=== PATIENT | female | born 1980 | race Asian ===

== ENCOUNTER 2018-01-03 12:17 | Inpatient (IN) | payer MEDICAID ==
[2018-01-03 13:53] LABS: ADD UMIC YES; UR ASCORBIC ACID NEGATIVE (NEGATIVE); UR BACTERIA FEW /HPF (NONE SEEN); UR BILIRUBIN (Dip) NEGATIVE (NEGATIVE); UR BLOOD (Dip) 1+ mg/dL (NEGATIVE); UR CLARITY CLEAR (CLEAR); UR COLOR YELLOW (YELLOW); UR GLUCOSE (Dip) NEGATIVE (NEGATIVE); UR KETONES (Dip) NEGATIVE (NEGATIVE); UR LEUKOCYTE ESTERASE (Dip) NEGATIVE Leu/ul (NEGATIVE); UR NITRITE (Dip) NEGATIVE (NEGATIVE); UR RBC 1 /HPF (0-5); UR SPECIFIC GRAVITY (Dip) 1.017 (1.003-1.030); UR SQUAMOUS EPITHELIAL CELL FEW /HPF (FEW); UR TOTAL PROTEIN (Dip) 1+ mg/dl (NEGATIVE); UR UROBILINOGEN (Dip) NEGATIVE (NEGATIVE); UR WBC 3 /HPF (0-5)
[2018-01-03 14:15] LABS: ADD MAN DIFF? NO
[2018-01-03 14:18] LABS: BASOPHILS % 0.4 % (0.0-2.0); EOSINOPHILS # 0.1 10^3/ul (0.0-0.5); EOSINOPHILS % 1.4 % (0.0-7.0); HEMATOCRIT 37.2 % (37.0-47.0); HEMOGLOBIN 12.7 g/dl (12.0-16.0); LYMPHOCYTES # 1.7 10^3/ul (0.8-2.9); LYMPHOCYTES % 17.9 % (15.0-51.0); MEAN CORPUSCULAR HEMOGLOBIN 31.1 pg (29.0-33.0); MEAN CORPUSCULAR HGB CONC 34.1 g/dl (32.0-37.0); MEAN PLATELET VOLUME 10.8 fl (7.4-10.4); MONOCYTE # 0.5 10^3/ul (0.3-0.9); MONOCYTES % 4.8 % (0.0-11.0); NEUTROPHIL # 6.9 10^3/ul (1.6-7.5); NEUTROPHILS % 73.7 % (39.0-77.0); PLATELET COUNT 245 10^3/UL (140-415); RED BLOOD COUNT 4.09 10^6/ul (4.20-5.40); RED CELL DISTRIBUTION WIDTH 12.7 % (11.5-14.5)
[2018-01-03 14:18] LABS: WHITE BLOOD COUNT 9.4 10^3/ul (4.8-10.8)
[2018-01-03 14:42] LABS: INR 0.83; PROTIME 11.5 Sec (11.9-14.9); PT RATIO 0.9
[2018-01-03 14:43] LABS: PARTIAL THROMBOPLASTIN TIME 26.7 Sec (25.0-35.0)
[2018-01-03 14:44] LABS: ALANINE AMINOTRANSFERASE 16 IU/L (13-69); ALBUMIN 3.5 g/dl (3.3-4.9); ALBUMIN/GLOBULIN RATIO 1.12; ALKALINE PHOSPHATASE 135 IU/L (42-121); ANION GAP 15 (8-16); ASPARTATE AMINO TRANSFERASE 17 IU/L (15-46); BILIRUBIN,INDIRECT 0.2 mg/dl (0-1.1); BILIRUBIN,TOTAL 0.2 mg/dl (0.2-1.3); BLOOD UREA NITROGEN 8 mg/dl (7-20); CALCIUM 8.7 mg/dl (8.4-10.2); CARBON DIOXIDE 21 mmol/L (21-31); CHLORIDE 106 mmol/L (97-110); CREATININE 0.53 mg/dl (0.44-1.00); GLUCOSE 83 mg/dl (70-220); POTASSIUM 3.9 mmol/L (3.5-5.1); SODIUM 138 mmol/L (135-144); TOTAL PROTEIN 6.6 g/dl (6.1-8.1)
[2018-01-04 07:06] LABS: ADD MAN DIFF? NO
[2018-01-04 07:17] LABS: WHITE BLOOD COUNT 10.4 10^3/ul (4.8-10.8)
[2018-01-04 07:17] LABS: BASOPHIL # 0.1 10^3/ul (0.0-0.1); BASOPHILS % 0.5 % (0.0-2.0); EOSINOPHILS # 0.3 10^3/ul (0.0-0.5); HEMATOCRIT 40.3 % (37.0-47.0); HEMOGLOBIN 13.8 g/dl (12.0-16.0); LYMPHOCYTES # 2.1 10^3/ul (0.8-2.9); LYMPHOCYTES % 20.1 % (15.0-51.0); MEAN CORPUSCULAR HEMOGLOBIN 31.1 pg (29.0-33.0); MEAN CORPUSCULAR HGB CONC 34.2 g/dl (32.0-37.0); MEAN CORPUSCULAR VOLUME 90.8 fl (82.0-101.0); MONOCYTE # 0.6 10^3/ul (0.3-0.9); MONOCYTES % 5.9 % (0.0-11.0); NEUTROPHIL # 7.2 10^3/ul (1.6-7.5); PLATELET COUNT 249 10^3/UL (140-415); RED BLOOD COUNT 4.44 10^6/ul (4.20-5.40); RED CELL DISTRIBUTION WIDTH 12.7 % (11.5-14.5)
[2018-01-04 07:31] LABS: INR 0.85; PROTIME 11.7 Sec (11.9-14.9); PT RATIO 0.9
[2018-01-04 07:33] LABS: ALANINE AMINOTRANSFERASE 17 IU/L (13-69); ALBUMIN 3.5 g/dl (3.3-4.9); ALBUMIN/GLOBULIN RATIO 1.16; ALKALINE PHOSPHATASE 139 IU/L (42-121); ANION GAP 12 (8-16); ASPARTATE AMINO TRANSFERASE 19 IU/L (15-46); BILIRUBIN,INDIRECT 0.2 mg/dl (0-1.1); BILIRUBIN,TOTAL 0.2 mg/dl (0.2-1.3); BLOOD UREA NITROGEN 13 mg/dl (7-20); CALCIUM 9.1 mg/dl (8.4-10.2); CARBON DIOXIDE 22 mmol/L (21-31); CHLORIDE 109 mmol/L (97-110); CREATININE 0.56 mg/dl (0.44-1.00); GLUCOSE 75 mg/dl (70-220); POTASSIUM 4.3 mmol/L (3.5-5.1); SODIUM 139 mmol/L (135-144); TOTAL PROTEIN 6.5 g/dl (6.1-8.1); URIC ACID 5.4 mg/dl (3.1-7.9)
[2018-01-04 08:02] LABS: FIBRIN SPLIT PRODUCT <10 ug/ml (<10)
[2018-01-04] MEDS ORDERED: DINOPROSTONE 10 MG VAG SUPP VAG (11:30)
[2018-01-04] MEDS: ACETAMINOPHEN 325 MG TAB PO ×2 (13:42→16:48)
[2018-01-04 15:40] LABS: COLLECTION PERIOD 24 hrs
[2018-01-04 16:45] LABS: VOLUME 2500 mls
[2018-01-04 16:46] LABS: COLLECTION PERIOD 24 hrs; CREATININE CLEARANCE 170.7 mls/min (84.0-162.0); CREATININE,URINE RANDOM 55.05 mg/dl (20-320); SCRET 0.56 mg/dl (0.44-1.00); VOLUME 2500 ml/24hrs
[2018-01-04] MEDS: LACTATED RINGER'S 1,000 ML IV (17:46)
[2018-01-04] MEDS: MAGNESIUM SULFATE 4 GM/100 ML 100 ML IVPB (17:54)
[2018-01-04] MEDS: MAGNESIUM SULFATE 20 GM/500 ML 500 ML IV (17:56)
[2018-01-05 01:31] LABS: MAGNESIUM 4.9 mg/dl (1.7-2.5)
[2018-01-05] MEDS: MAGNESIUM SULFATE 20 GM/500 ML 500 ML IV ×2 (04:33→17:02)
[2018-01-05] MEDS ORDERED: EPHEDrine SULFATE 50 MG/5 ML SYG (07:00)
[2018-01-05] MEDS ORDERED: OXYTOCIN 30 UNITS/LR 500 ML BAG IV (07:00)
[2018-01-05] MEDS: LACTATED RINGER'S 1,000 ML IV ×2 (07:14→20:46)
[2018-01-05 08:33] LABS: MAGNESIUM 5.5 mg/dl (1.7-2.5)
[2018-01-05] MEDS: CEFAZOLIN 2 GM/50 ML (PMX) 50 ML IVPB (13:00)
[2018-01-05] MEDS ORDERED: CEFAZOLIN 2 GM/50 ML (PMX) 50 ML IVPB (13:05)
[2018-01-05 13:44] LABS: MAGNESIUM 6.1 mg/dl (1.7-2.5)
[2018-01-05] MEDS ORDERED: morphine SULFATE/PF (10 MG/10 ML) INJ (13:44)
[2018-01-05] MEDS ORDERED: BUPIVACAINE 0.75%/DEXT (SPINAL) 2 ML INJ (13:46)
[2018-01-05] MEDS ORDERED: PHENYLephrine (100 MCG/ML) 5ML SYG ×2 (13:58→14:18)
[2018-01-05] MEDS ORDERED: HYDROmorphONE 0.5 MG/0.5 ML SYG IV ×2 (15:30)
[2018-01-05] MEDS ORDERED: NALOXONE (0.4 MG/ML) INJ IV (15:30)
[2018-01-05] MEDS ORDERED: METOCLOPRAMIDE 10 MG INJ IV (15:30)
[2018-01-05] MEDS ORDERED: ONDANSETRON 4 MG INJ IV ×2 (15:30)
[2018-01-05] MEDS ORDERED: KETOROLAC 30 MG INJ IV (15:30)
[2018-01-05] MEDS ORDERED: DIPHENHYDRAMINE 50 MG INJ IV ×2 (15:30)
[2018-01-05] MEDS ORDERED: FENTAnyl 50 MCG/ML VIAL IV ×2 (15:30)
[2018-01-05] MEDS ORDERED: HYDROmorphONE (0.2 MG/ML) 10ML SYG IV ×2 (15:30)
[2018-01-05] MEDS: OXYTOCIN 30 UNITS/LR 500 ML IV ×4 (16:14→23:00)
[2018-01-05] MEDS ORDERED: MISOPROSTOL 200 MCG TAB PR (18:30)
[2018-01-05] MEDS ORDERED: METHYLERGONOVINE 0.2 MG INJ IM (18:30)
[2018-01-05] MEDS ORDERED: NA PHOSPHATE/BIPHOS 133 ML ENEMA PR (18:30)
[2018-01-05] MEDS ORDERED: OXYTOCIN 30 UNITS/LR 500 ML IV (18:30)
[2018-01-05] MEDS ORDERED: NACL 0.9% 3 ML SYG IV (18:30)
[2018-01-05] MEDS: KETOROLAC 30 MG INJ IV (18:40)
[2018-01-05 21:09] LABS: RAPID PLASMA REAGIN NONREACTIVE (NR)
[2018-01-05] MEDS: IBUPROFEN 800 MG TAB PO (22:00)
[2018-01-06 00:26] LABS: MAGNESIUM 4.9 mg/dl (1.7-2.5)
[2018-01-06] MEDS: KETOROLAC 30 MG INJ IV ×2 (00:38→11:27)
[2018-01-06] MEDS: LACTATED RINGER'S 1,000 ML IV ×2 (02:00→11:24)
[2018-01-06] MEDS: OXYTOCIN 30 UNITS/LR 500 ML IV (03:00)
[2018-01-06] MEDS: CARBOPROST 250 MCG INJ IM (03:16)
[2018-01-06] MEDS: IBUPROFEN 800 MG TAB PO ×3 (06:00→23:16)
[2018-01-06 09:23] LABS: ADD MAN DIFF? NO
[2018-01-06 09:31] LABS: BASOPHILS % 0.3 % (0.0-2.0); EOSINOPHILS # 0.1 10^3/ul (0.0-0.5); HEMATOCRIT 31.9 % (37.0-47.0); HEMOGLOBIN 10.8 g/dl (12.0-16.0); LYMPHOCYTES # 1.4 10^3/ul (0.8-2.9); LYMPHOCYTES % 12.5 % (15.0-51.0); MEAN CORPUSCULAR HEMOGLOBIN 31.1 pg (29.0-33.0); MEAN CORPUSCULAR HGB CONC 33.9 g/dl (32.0-37.0); MEAN CORPUSCULAR VOLUME 91.9 fl (82.0-101.0); MEAN PLATELET VOLUME 10.3 fl (7.4-10.4); MONOCYTE # 0.5 10^3/ul (0.3-0.9); MONOCYTES % 4.4 % (0.0-11.0); NEUTROPHIL # 9.2 10^3/ul (1.6-7.5); NEUTROPHILS % 81.2 % (39.0-77.0); PLATELET COUNT 218 10^3/UL (140-415); RED BLOOD COUNT 3.47 10^6/ul (4.20-5.40); RED CELL DISTRIBUTION WIDTH 12.7 % (11.5-14.5)
[2018-01-06 09:31] LABS: WHITE BLOOD COUNT 11.3 10^3/ul (4.8-10.8)
[2018-01-06 09:59] LABS: MAGNESIUM 4.6 mg/dl (1.7-2.5)
[2018-01-06] MEDS: MAGNESIUM SULFATE 20 GM/500 ML 500 ML IV (10:08)
[2018-01-06] MEDS: LANOLIN 7 GM TUBE TOP (10:09)
[2018-01-06] MEDS: HYDROCODONE/APAP (5/325) TAB PO (22:04)
[2018-01-07] MEDS: IBUPROFEN 800 MG TAB PO ×3 (05:50→21:42)
[2018-01-08] MEDS: IBUPROFEN 800 MG TAB PO ×2 (05:39→14:36)
[2018-01-08] MEDS: MEASLES,MUMPS,RUBELLA VACCINE INJ SC* (09:00)
[2018-01-08] MEDS: DIPHTH/TET/ACEL PERTUSS (ADULT) 0.5 ML VIAL IM* (14:37)
== END 2018-01-08 19:01 | disposition home or self-care (01) | DRG 766 ==
LOC: OBT 12:17 → L-D 12:19 → OBT 15:20 → L-D 01-05 16:41 → PP1 01-05 18:07 → L-D 20:25
PROC: 10D00Z1 Extraction of Products of Conception, Low, Open Approach (ICD-10-PCS; principal; 2018-01-05)
DX: O14.94 Unspecified pre-eclampsia, complicating childbirth (principal); O34.211 Maternal care for low transverse scar from previous cesarean delivery; Z3A.37 37 weeks gestation of pregnancy; Z37.0 Single live birth
CPT/HCPCS: 76818; 80053; 81001; 82575; 83735; 84156; 84560; 85025; 85362; 85384; 85610; 85730; 86592; 86850; 86900; 86901; 88302; 90715; 94760; 99464